=== PATIENT | female | born 1945 | race Caucasian/White ===

== ENCOUNTER → 2016-11-16 | Outpatient (CLI) | payer OTHER, BC ==
[~2016-11-16] MED LIST: ALBUAER19 INH; ASPI-232 PO; ATOR-26 PO; B-COCAP2 PO; CHOL2000 PO; COEN1CAP17 PO; ELDERBERRY PO; EST1 PO; FLORADIX PO; LYSINE PO; MEDR2.5T PO; METH-307 PO; MOME220A INH; OSTEO MATRIX PO; PSYL1CAP4 PO; VITACAP26 PO; VTMEUNK; [UNRECOGNIZED DRUG - CODE] PO; [UNRECOGNIZED DRUG - CODE] PO; [UNRECOGNIZED DRUG - OTHER] PO; lovaza PO
--- NOTE | 2016-11-25 09:10 | CODING QUERY MEDICAL NECESSITY ---
SUPPORTING DIAGNOSIS NEEDED A supporting diagnosis is required for the test/procedure performed on this patient in order for us to be reimbursed by the patient's insurance. Please provide a supporting diagnosis for the following test/procedure listed below next to the test name along with your signature. *If there is no additional diagnosis for this patient that would support the following test/procedure please document that below next to the test/procedure. Test(s)/Procedure(s) that require a supporting diagnosis: DOS /2 * Bone Density Study DIAGNOSIS: Provider Signature: Date: Thank you Angela Pizarro Health Information Management Once completed, please kindly fax back to [phone] For questions please call [phone]
== END | disposition home or self-care (01) ==
LOC: C.MAMM 10:15
PROVIDERS: ATTEND Family Medicine
DX: Z13.820 Encounter for screening for osteoporosis (principal)

== ENCOUNTER → 2016-12-02 | Outpatient (CLI) | payer OTHER, BC ==
[2016-12-02 14:41] LABS: BASO % 0.7 %; BASO ABS # 0.05 K/uL (0-0.2); COMPLETE YES; EOS % 2.9 %; HEMATOCRIT 41.8 % (37-47); IG% 0.1 %; LYMPH % 26.4 %; LYMPH ABS # 1.99 K/uL (1.2-3.4); MEAN CORPUSCULAR HEMOGLOBIN 32.7 pg (25-34); MEAN CORPUSCULAR HGB CONC 34.4 g/dl (32-36); MEAN PLATELET VOLUME 9.8 fL (7.4-10.4); MONO % 8.2 %; NEUT % 61.7 %; PLATELET COUNT 295 K/uL (130-400); WHITE BLOOD COUNT 7.54 K/uL (4.8-10.8)
== END | disposition home or self-care (01) ==
LOC: C.LAB1850 13:40
PROVIDERS: ATTEND Family Medicine
DX: Z86.19 Personal history of other infectious and parasitic diseases (principal)

== ENCOUNTER → 2017-03-25 | Outpatient (CLI) | payer OTHER, BC ==
--- NOTE | 2017-03-25 14:33 | DIAGNOSTIC IMAGING REPORT ---
L-SPINE MIN 4 VIEWS ROUTINE CLINICAL HISTORY: Acute back pain COMPARISON STUDY: 06/28/2015 FINDINGS: There are extensive postsurgical changes. There is evidence of an L4-5 and L5-S1 discectomy and interbody fusion. There is an L4 vertebral body cage. There is a lumbar dextroscoliosis. There is evidence of a posterior spinal fusion extending from the T10-S1 level. There are bilateral sacroiliac bolts. There is a fracture of the right spinal riri at the L3-4 level. There is no pathologic bowel dilatation. IMPRESSION: 1. Extensive postsurgical changes. No acute fractures or subluxations are visualized on conventional radiographic imaging 2. Fracture the right spinal riri the L3-4 level. This is old. Electronically signed by: Isaias Rodriges M.D. 03/25/2017 2:32 PM Dictated Date/Time: 03/25/2017 2:28 PM
== END | disposition home or self-care (01) ==
LOC: C.RAD 14:03
PROVIDERS: ATTEND Family Medicine
DX: M54.9 Dorsalgia, unspecified (principal)

== ENCOUNTER → 2017-04-09 | Outpatient (CLI) | payer OTHER, BC ==
--- NOTE | 2017-04-09 12:51 | MAMMOGRAPHY REPORT ---
BILATERAL DIGITAL SCREENING MAMMOGRAM TOMOSYNTHESIS WITH CAD: 04/09/2017 CLINICAL HISTORY: Routine screening. Patient has no complaints. TECHNIQUE: Breast tomosynthesis in addition to standard 2D mammography was performed. Current study was also evaluated with a Computer Aided Detection (CAD) system. COMPARISON: Comparison is made to exams dated: 10/15/2016 mammogram, 04/15/2016 mammogram, 04/06/2016 m ammogram, 04/01/2015 mammogram, 03/30/2014 mammogram, and 02/28/2013 mammogram - [facility]. BREAST COMPOSITION: There are scattered areas of fibroglandular density in both breasts. FINDINGS: No suspicious masses, calcifications, or areas of architectural distortion are noted in e ither breast. There has been no significant interval change compared to prior exams. IMPRESSION: ACR BI-RADS CATEGORY 1: NEGATIVE There is no mammographic evidence of malignancy. A 1 year screening mammogram is recommended. The p atient will receive written notification of the results. Approximately 10% of breast cancers are not detected with mammography. A negative mammographic repor t should not delay biopsy if a clinically suggestive mass is present. Gissel Beck M.D. ah/:04/09/2017 12:09:11 Wheel Aligner: Kyra Keene RT(R)(M), [facility] letter sent: Normal 1/2 BI-RADS Code: ACR BI-RADS Category 1: Negative
== END | disposition home or self-care (01) ==
LOC: C.MAMM 10:46
PROVIDERS: ATTEND Obstetrics & Gynecology
DX: Z12.31 Encounter for screening mammogram for malignant neoplasm of breast (principal)

== ENCOUNTER → 2017-05-11 | Outpatient (CLI) | payer OTHER, BC ==
[2017-05-11 09:58] LABS: BASO % 0.6 %; BASO ABS # 0.04 K/uL (0-0.2); COMPLETE YES; EOS % 2.6 %; HEMATOCRIT 43.7 % (37-47); IG% 0.2 %; LYMPH % 25.2 %; LYMPH ABS # 1.64 K/uL (1.2-3.4); MEAN CELL VOLUME 94.8 fL (80-100); MEAN CORPUSCULAR HEMOGLOBIN 32.1 pg (25-34); MEAN CORPUSCULAR HGB CONC 33.9 g/dl (32-36); MEAN PLATELET VOLUME 9.4 fL (7.4-10.4); MONO % 9.5 %; NEUT % 61.9 %; PLATELET COUNT 295 K/uL (130-400); RED BLOOD COUNT 4.61 M/uL (4.2-5.4); WHITE BLOOD COUNT 6.52 K/uL (4.8-10.8)
[2017-05-11 10:28] LABS: BLOOD UREA NITROGEN 16 mg/dl (7-18); BUN/CREATININE RATIO 23.6 (10-20); CARBON DIOXIDE 28 mmol/L (21-32); CHLORIDE 106 mmol/L (98-107); CHOLESTEROL 169 mg/dl (0-200); CREATININE 0.67 mg/dl (0.60-1.20); GLUCOSE 89 mg/dl (70-99); POTASSIUM 3.8 mmol/L (3.5-5.1); SODIUM 141 mmol/L (136-145)
[2017-05-11 10:34] LABS: ALB/GLOB RATIO 1.1 (0.9-2); ALKALINE PHOSPHATASE 78 U/L (45-117); ALT/SGPT 28 U/L (12-78); AST/SGOT 25 U/L (15-37); C-REACTIVE PROTEIN < 0.29 mg/dl (0-0.29); CHOLESTEROL/HDL RATIO 2.8; FERRITIN 37.1 ng/ml (8.0-388.0); HDL CHOLESTEROL 61 mg/dl; LDL CHOLESTEROL CALCULATED 81 mg/dl; TRIGLYCERIDES 135 mg/dl (0-150); VERY LOW DENSITY LIPOPROT CALC 27 mg/dl
[2017-05-11 11:49] LABS: ESTIMATED AVERAGE GLUCOSE 117 mg/dl; HA1C FLAG Normal (Normal)
[2017-05-11 13:25] LABS: CALCIUM 9.5 mg/dl (8.5-10.1)
--- NOTE | 2017-05-19 12:16 | CODING QUERY MEDICAL NECESSITY ---
CQSUPPORTING DIAGNOSIS NEEDED A supporting diagnosis is required for the test/procedure performed on this patient in order for us to be reimbursed by the patient's insurance. Please provide a supporting diagnosis for the following test/procedure listed below next to the test name along with your signature. *If there is no additional diagnosis for this patient that would support the following test/procedure please document that below next to the test/procedure. Test(s)/Procedure(s) that require a supporting diagnosis: DOS 05/11/17 GLYCATED HEMOGLOBIN TEST (PREDIABETES DOES NOT COVER MEDICAL NECESSITY) Provider Signature: Date: Thank you Pili Gray Health Information Management Once completed, please kindly fax back to [phone] For questions please call [phone]
== END | disposition home or self-care (01) ==
LOC: C.LAB1850 09:00
PROVIDERS: ATTEND Family Medicine
DX: J45.909 Unspecified asthma, uncomplicated (principal); M48.06 Spinal stenosis, lumbar region; E78.5 Hyperlipidemia, unspecified; R73.03 Prediabetes; Z11.59 Encounter for screening for other viral diseases; Z86.19 Personal history of other infectious and parasitic diseases; D64.9 Anemia, unspecified

== ENCOUNTER → 2017-11-12 | Outpatient (CLI) | payer OTHER, BC | END | disposition home or self-care (01) | LOC: C.LAB1850 16:29 | PROVIDERS: ATTEND Physician Assistant Medical | DX: J02.9 Acute pharyngitis, unspecified (principal) ==

== ENCOUNTER → 2017-11-18 | Outpatient (CLI) | payer OTHER, BC ==
[2017-11-18 12:58] LABS: BASO ABS # 0.06 K/uL (0-0.2); EOS % 2.9 %; EOS ABS # 0.18 K/uL (0-0.5); HEMATOCRIT 41.9 % (37-47); HEMOGLOBIN 14.4 g/dL (12.0-16.0); IG# 0.01 K/uL (0.00-0.02); LYMPH % 27.8 %; LYMPH ABS # 1.74 K/uL (1.2-3.4); MEAN CELL VOLUME 95.4 fL (80-100); MEAN CORPUSCULAR HEMOGLOBIN 32.8 pg (25-34); MEAN CORPUSCULAR HGB CONC 34.4 g/dl (32-36); MEAN PLATELET VOLUME 9.5 fL (7.4-10.4); MONO % 8.8 %; MONO ABS # 0.55 K/uL (0.11-0.59); NEUT % 59.3 %; NEUT ABS # 3.73 K/uL (1.4-6.5); PLATELET COUNT 305 K/uL (130-400); RED CELL DISTRIBUTION WIDTH CV 12.8 % (11.5-14.5); RED CELL DISTRIBUTION WIDTH SD 44.3 fL (36.4-46.3); WHITE BLOOD COUNT 6.27 K/uL (4.8-10.8)
[2017-11-18 13:24] LABS: HEMOGLOBIN A1C 5.8 % (4.5-5.6)
[2017-11-18 16:33] LABS: ALBUMIN 3.8 gm/dl (3.4-5.0); ALT/SGPT 28 U/L (12-78); BLOOD UREA NITROGEN 10 mg/dl (7-18); CALCIUM 9.1 mg/dl (8.5-10.1); CARBON DIOXIDE 25 mmol/L (21-32); CHOLESTEROL 150 mg/dl (0-200); CREATININE 0.63 mg/dl (0.60-1.20); GLUCOSE 91 mg/dl (70-99); POTASSIUM 3.8 mmol/L (3.5-5.1); SODIUM 137 mmol/L (136-145)
[2017-11-18 16:36] LABS: ALKALINE PHOSPHATASE 81 U/L (45-117); AST/SGOT 27 U/L (15-37); LDL CHOLESTEROL CALCULATED 63 mg/dl; TOTAL PROTEIN 7.5 gm/dl (6.4-8.2)
== END | disposition home or self-care (01) ==
LOC: C.LAB1850 11:49
PROVIDERS: ATTEND Family Medicine
DX: E78.01 Familial hypercholesterolemia (principal); R73.03 Prediabetes; E78.5 Hyperlipidemia, unspecified; Z86.19 Personal history of other infectious and parasitic diseases

== ENCOUNTER → 2018-06-23 | Outpatient (CLI) | payer OTHER, BC ==
--- NOTE | 2018-06-24 15:26 | MAMMOGRAPHY REPORT ---
BILATERAL DIGITAL SCREENING MAMMOGRAM TOMOSYNTHESIS WITH CAD: 06/23/2018 CLINICAL HISTORY: Routine screening. Patient has no complaints. TECHNIQUE: The study was acquired using full field digital technology and interpreted from soft copy. Breast tomosynthesis in addition to standard 2D mammography was performed. Current study was also ev aluated with a Computer Aided Detection (CAD) system. COMPARISON: Comparison is made to exams dated: 04/09/2017 mammogram, 10/15/2016 mammogram, 04/15/2016 ma mmogram, 04/06/2016 mammogram, 04/01/2015 mammogram, and 03/30/2014 mammogram - [facility]ter. BREAST COMPOSITION: There are scattered areas of fibroglandular density in both breasts. FINDINGS: There is a small 5 mm lobulated mass within the left lower inner quadrant, for which spot compression tomosynthesis views and possible breast ultrasound are recommended for further evaluation. The remainder of both breasts are stable compared to prior exams, without suspicious masses, calcific ations, or areas of architectural distortion noted. IMPRESSION: ACR BI-RADS CATEGORY 0: INCOMPLETE EVALUATION: NEED ADDITIONAL IMAGING EVALUATION Left breast mass, for which additional imaging evaluation is recommended. The patient will be called to schedule an appointment. Some breast cancers are not detected with mammography. A negative mammographic report should not yohan y biopsy if a clinically suggestive mass is present. Gissel Beck M.D. /:06/23/2018 16:20:46 Transportation Associate: Yadira Pop, RT(R)(M), [facility] letter sent: Addl Imaging 0 BI-RADS Code: ACR BI-RADS Category 0: Incomplete Evaluation: Need Additional Imaging Evaluation
== END | disposition home or self-care (01) ==
LOC: C.MAMM 14:01
PROVIDERS: ATTEND Family Medicine
DX: Z12.31 Encounter for screening mammogram for malignant neoplasm of breast (principal); N63.20 Unspecified lump in the left breast, unspecified quadrant

== ENCOUNTER → 2018-07-05 | Outpatient (CLI) | payer OTHER, BC ==
--- NOTE | 2018-07-05 15:12 | MAMMOGRAPHY REPORT ---
UNILATERAL LEFT DIGITAL DIAGNOSTIC MAMMOGRAM TOMOSYNTHESIS AND TARGETED LEFT ULTRASOUND: 07/05/2018 CLINICAL HISTORY: 72-year-old woman called back from screening mammography for a 5 mm lobulated mass in the left lower inner quadrant. During this diagnostic appointment the patient also reports intermi ttent left mastalgia. TECHNIQUE: Spot compression left CC and MLO tomosynthesis images; left CC and MLO tomosynthesis full- field views were obtained after placement of a skin BB marker. COMPARISON: Comparison is made to exams dated: 06/23/2018 mammogram, 04/09/2017 mammogram, 10/15/2016 ma mmogram, 04/15/2016 mammogram, 04/06/2016 mammogram, and 04/01/2015 mammogram - [facility]. BREAST COMPOSITION: There are scattered areas of fibroglandular density in left breast. FINDINGS: The spot compression tomosynthesis views of the left breast demonstrate a persistent 2.8 x 4.6 x 2.7 mm mass in the lower inner anterior left breast. No associated architectural distortion or calcification. Further characterization with ultrasound was performed. Targeted ultrasound was performed throughout the lower inner left breast. The patient describes derrek ral areas of pain with ultrasound scanning, notably in the retroareolar breast and 6:00 axes. The ar eas of concern no suspicious solid or cystic mass was identified. In the 630 left breast, 1 cm from the nipple, there is an angular hypoechoic solid versus cystic mass measuring approximately 2.8 x 2.5 x 4.6 mm. This is thought to correspond to the mammographic finding but for confirmation a skin BB was placed overlying the sonographic lesion and repeat left CC and MLO tomosynthesis full-field views were obtained to assess mammographic or sonographic correlation. The additional full-field views demonstrate alignment of the BB marker with the mammographic mass con firming mammographicsonographic correlation. This mass is indeterminate and definitive characteriza tion with an ultrasound-guided core biopsy is recommended. IMPRESSION: ACR BI-RADS CATEGORY 4: SUSPICIOUS, ULTRASOUND ACR BI-RADS CATEGORY 4: SUSPICIOUS 1. Left breast ultrasound-guided core biopsy is recommended for an indeterminate 4.6 mm mass in the 6:30 left breast, which corresponds with the mammographic finding. 2. No definite suspicious sonographic abnormality to explain the left breast intermittent mastalgia, and therefore continued clinical monitoring is recommended. These results and recommendations were discussed with the patient at the time of the exam. She tenta tively scheduled a left breast biopsy prior to leaving the department. Some breast cancers are not detected with mammography. A negative mammographic report should not yohan y biopsy if a clinically suggestive mass is present. Rolanda Lee M.D. ay/:07/05/2018 11:33:22 Well Service Pump Equipment Operator: RT Annalisa(R)(M), [facility] letter sent: Abnormal 4/5 OVERALL STUDY BIRADS: 4 Suspicious abnormality
== END | disposition home or self-care (01) ==
LOC: C.MAMM 10:00
PROVIDERS: ATTEND Family Medicine
DX: N63.24 Unspecified lump in the left breast, lower inner quadrant (principal); N64.4 Mastodynia

== ENCOUNTER → 2018-07-06 | Outpatient (CLI) | payer OTHER, BC ==
--- NOTE | 2018-07-06 14:49 | Discharge Instructions ---
Discharge Instructions Procedure Procedure Date: Jul 06, 2018. Reason for visit: Left Mass. Discharge Discharge Date: Jul 06, 2018. Discharge Diagnosis: post left breast ultrasound guided core biopsy Instructions Activity Recommendations: Additional Limitations (see below) Return to School/Work: no limitations Recommended Home Diet: No Limitations Provider Instructions: ACTIVITY RECOMMENDATIONS: * No lifting, pushing, pulling or exercising the affected side for three days. RETURN TO SCHOOL/WORK: * You may return to work/school after the procedure, but do not perform any strenuous activities for 24 to 48 hours. MEDICATIONS: * Tylenol (two 325 mg) every four to six hours if needed for mild pain (if not allergic to Tylenol). DIET: * Resume previous diet. SPECIAL CARE INSTRUCTIONS: * Keep biopsy site dry for 24 hours. May shower after 24 hours, but do not soak (bathe) incision. May remove Tegaderm (plastic patch) 24 hours after procedure * Leave the steri-strips on for one week. Allow the steri-strips to fall off by themselves. If not off after one week, you may remove them. You may place a Bandaid crosswise over the strips, if desired. * Apply ice 10 minutes on and 10 minutes off as needed. * Wear a bra at bedtime to sleep more comfortably for 2-3 days. * Your referring physician should have the results after approximately 5 to 7 business days. * Call for unusual bleeding, fever, drainage, etc or if you have any questions call [phone] during normal business hours or after hours call Dr Lee, . FOLLOW UP VISIT: Follow-up with Referring Physician as scheduled. Allergies Coded Allergies: No Known Allergies (Unverified , 09/10/15) Zeyad Damon Recommendations: Call your doctor if: * Temperature above 101 degrees * Pain not relieved by pain medicine ordered * There is increased drainage or redness from any incision * You have any unanswered questions or concerns. Your Doctors Instructions noted above were prepared by provider Rolanda Lee. Patient Signature Section: Patient Instructions Signature Page Alicia Herrera Patient (or Guardian) Signature/Date: I have read and understand the instructions given to me by my caregivers. Caregiver/RN/Doctor Signature/Date: The above-named patient and/or guardian has received patient instructions on this date. + Original Patient Signature Page (only) stays with chart. Please make copy for patient.
--- NOTE | 2018-07-07 15:07 | MAMMOGRAPHY REPORT ---
ULTRASOUND GUIDED BIOPSY LEFT BREAST: 07/06/2018 CLINICAL HISTORY: 72-year-old woman presents for biopsy of a 4.6 mm mass in the 6:30 anterior left br east, which correlates with a mammographic mass. COMPARISON: Diagnostic mammogram and ultrasound dated 07/05/2018, screening mammography dated 06/23/2018 , 04/09/2017, 10/15/2016, prior ultrasound dated 10/15/2016. PATIENT CONSENT: The procedure, risks and benefits were discussed with the patient and informed conse nt was obtained both verbally and in writing. Specific risks to this procedure include: bleeding, in fection, puncture of adjacent structure, nontarget biopsy, sampling error, pain, metal allergy and me dication reaction. PROCEDURE DESCRIPTION: A time out was performed and the left breast was agreed as the site of biopsy. The skin was prepped and draped in the usual sterile fashion. The 4.6 mm hypoechoic mass in the 630 left breast was chosen as the target for biopsy. Subcutaneous and intraparenchymal 1% buffered lidoca ine, with and without epinephrine, was administered as local anesthesia. A skin incision was made. T hrough the incision, 4 samples were taken with a 14 gauge Achieve biopsy device. A ribbon shaped meta llic marker was placed at the biopsy site. Hemostasis was achieved after manual compression. The mago ent tolerated the procedure well and there was no immediate complication. The samples were sent to [facility] pathology department in an appropriately labeled container. Postprocedure left CC and ML tomosynthesis images were obtained. A new biopsy marker clip is identif ied in the 6:30 left breast, aligning with the mammographic mass/focal asymmetry in question. No sig nificant postbiopsy hematoma. IMPRESSION: ULTRASOUND GUIDED BIOPSY Status post left breast ultrasound-guided core biopsy of a 4.6 mm mass in the 6:30 left breast, with ribbon-shaped biopsy marker clip placed at the site. The patient will receive notification of the biopsy results from her referring physician. Rolanda Lee M.D. ay/:07/06/2018 15:04:19 Claims Service Adjustor: Bridgett Brewer, [facility]
== END | disposition home or self-care (01) ==
LOC: C.MAMM 13:56
PROVIDERS: ATTEND Family Medicine
DX: N63.20 Unspecified lump in the left breast, unspecified quadrant (principal); N60.12 Diffuse cystic mastopathy of left breast